=== PATIENT | male | born 1980 | race Caucasian/White ===

== ENCOUNTER 2019-01-17 09:53 | Emergency (ER) | payer OTHER ==
[~2019-01-17] VITALS: Ht 177.8 cm; Wt 83.9 kg
[~2019-01-17 09:53] MED LIST: CLIN150 PO; CYCL10 PO; DOCU100 PO; DOXY100 PO; HYDACE5 PO; IBUP400 PO; NAPR500 PO; OXYACE5T PO; Percocet 5-3251 EACH PO; RXHYDACE PO; Zofran Odt4 MG SL
[2019-01-17] MEDS ORDERED: OMEPRAZOLE MAGN20 MG PO (10:12)
== END 2019-01-17 11:22 | disposition home or self-care (01) ==
LOC: ER 09:53
DX: S81.812A Laceration without foreign body, left lower leg, initial encounter (principal); I10 Essential (primary) hypertension; K21.9 Gastro-esophageal reflux disease without esophagitis; W18.40XA Slipping, tripping and stumbling without falling, unspecified, initial encounter
CPT/HCPCS: 12002; 99282-25